=== PATIENT | male | born 2000 ===

== ENCOUNTER 2024-06-30 16:11 | Emergency (ER) | payer SELFPAY ==
[2024-06-30] MEDS: Diphtheria,Pertussis(Acell),Tetanus Vaccine 0.5 ML Syringe IM ONE (17:12)
[2024-06-30] MEDS: Lidocaine 1% 10 ML MDV INJECT ONE (20:17)
== END 2024-06-30 20:18 | disposition home or self-care (01) ==
LOC: JD.ED 16:11
DX: S61.212A Laceration without foreign body of right middle finger without damage to nail, initial encounter (principal); W26.8XXA Contact with other sharp object(s), not elsewhere classified, initial encounter
CPT/HCPCS: 12001; 73140-26-F7; 73140-F7; 90471; 90715; 99283-25; J3490